=== PATIENT | male | born 1960 | race African-American/Black ===

== ENCOUNTER 2018-04-15 11:38 | Emergency (ER) | payer BC ==
--- NOTE | 2018-04-15 13:17 | UC ---
Upper Extremity HPI - HPI Summary HPI Summary: 58 year old male presents with left should pain after slipping on ice and landing on the ground on his left side. Describes pain as a constant ache that worsens with movement. He has some decreased ROM due to pain. Denies hitting head, LOC, eccymosis, swelling, numbness, tingling, or other injury. - History of Current Complaint Chief Complaint: UCUpperExtremity Stated Complaint: SHOULDER INJURY Time Seen by Provider: 04/15/18 12:38 Hx Obtained From: Patient Pain Intensity: 8 - Allergies/Home Medications Allergies/Adverse Reactions: Allergies Allergy/AdvReac Type Severity Reaction Status Date / Time No Known Allergies Allergy Verified 04/15/18 12:14 Home Medications: Home Medications Amlodipine Besylate [Norvasc 10 mg tab] 04/15/18 [History] Atorvastatin* [Lipitor 20 MG*] 20 mg PO DAILY 04/15/18 [History Confirmed ] Glimepiride 1 mg PO DAILY 04/15/18 [History Confirmed 04/15/18] Metformin HCl 1,000 mg PO BID 04/15/18 [History Confirmed 04/15/18] Ramipril 10 mg PO DAILY 04/15/18 [History Confirmed 04/15/18] cloNIDine TAB* [Catapres 0.1 MG TAB*] 0.1 mg PO DAILY 04/15/18 [History Confirmed 04/15/18] PMH/Surg Hx/FS Hx/Imm Hx Endocrine History: Diabetes, Dyslipidemia Cardiovascular History: Hypertension - Surgical History Surgical History: None - Family History Known Family History: Positive: Hypertension, Diabetes - Social History Occupation: Employed Full-time Lives: With Family Alcohol Use: None Substance Use Type: None Smoking Status (MU): Never Smoked Tobacco Review of Systems All Other Systems Reviewed And Are Negative: Yes Constitutional: Positive: Negative Skin: Negative: Bruising Respiratory: Positive: Negative Cardiovascular: Positive: Negative Gastrointestinal: Positive: Negative Genitourinary: Positive: Negative Musculoskeletal: Positive: Arthralgia - See HPI Neurological: Positive: Negative Physical Exam - Summary Physical Exam Summary: GENERAL APPEARANCE: Well developed, well nourished, alert and cooperative, and appears to be in no acute distress. HEAD: Atraumatic. normocephalic. EYES: PERRL, EOM intact. Vision is grossly intact. NECK: Neck supple, non-tender. CARDIAC: Normal S1 and S2. No S3, S4 or murmurs. Rhythm is regular. There is no peripheral edema, cyanosis or pallor. Extremities are warm and well perfused. Capillary refill is less than 2 seconds. Peripheral pulses intact. LUNGS: Clear to auscultation without rales, rhonchi, wheezing or diminished breath sounds. ABDOMEN: Positive bowel sounds. Soft, nondistended, nontender. No guarding or rebound. No masses or hepatosplenomegally. MUSKULOSKELETAL: Tenderness over the lateral left shoulder without gross deformity, ecchymosis, erythema, or lesions. ROM mildly reduced due to pain especially with abduction. Normal muscular development. Normal gait. BACK: Examination of the spine reveals normal gait and posture, no spinal deformity or tenderness, decreased range of motion or muscular spasm. EXTREMITIES: No significant deformity or joint abnormality. No edema. NEUROLOGICAL: Strength and sensation symmetric and intact throughout. SKIN: Skin normal color, texture and turgor with no lesions or eruptions. Triage Information Reviewed: Yes Vital Signs: Initial Vital Signs Temp 97.6 F 04/15/18 12:11 Pulse 62 04/15/18 12:11 Resp 16 04/15/18 12:11 BP 120/76 04/15/18 12:11 Pulse Ox 100 04/15/18 12:11 Vital Signs Reviewed: Yes Diagnostics - Radiology No standard instances Radiology Interpretation Completed By: Radiologist Summary of Radiographic Findings: Negative for fracture or dislocation. Upper Extremity Course/Dx - Course Course Of Treatment: 58 year old male presents with left should pain after slipping on ice and landing on the ground on his left side. Describes pain as a constant ache that worsens with movement. He has some decreased ROM due to pain. Denies hitting head, LOC, eccymosis, swelling, numbness, tingling, or other injury. Afebrile. VSS. Exam revealed some mild tenderness to the lateral left shoulder without gross deformity, ecchymosis, erythema, or lesions noted. ROM mildly decreased, especiallly abduction of the shoulder, due to pain. Circluation and sensation intact distally. X-ray negative for fracture or dislocation. Recommending conservative treatment with OTC analgesics and RICE for sprain vs contusion of left shoulder. He is to follow up with orthopedi surgery in 1 week if no improvment in symptoms. Anticipatory guidance and mary symptoms reviewed with patient. Verbalizes understanding and agrees with POC. - Differential Dx/Diagnosis Differential Diagnosis/HQI/PQRI: Contusion, Fracture (Closed), Strain, Sprain Provider Diagnosis: Sprain of left shoulder Discharge - Sign-Out/Discharge Documenting (check all that apply): Patient Departure All imaging exams completed and their final reports reviewed: Yes - Discharge Plan Condition: Stable Disposition: HOME Prescriptions: Naproxen [Naproxen 500 mg tab] 500 mg PO Q12HR PRN #30 tablet PRN Reason: Pain Patient Education Materials: Shoulder Sprain (ED) Referrals: Radha Lozoya MD [Primary Care Provider] - Lula Eason MD [Medical Doctor] - 7 Days (If no improvement in symptoms.) Additional Instructions: The x-ray of your shoulder performed in the clinic today was negative for fracture. I suspect that you either sprained the should or have a bad contusion. Rest the arm as much as possible. Avoid heavy lifting and strenuous activity. Apply ice to the affected area for 15-20 minutes at least 4 times a day for next few days. Do gentle range of motion exercises as we discussed to prevent the shoulder from becoming stiff. Take naproxen 500 mg every 12 hours with food as needed for pain. Follow up with Dr. Eason, orthopedic surgery, in 7 days if no improvement in symptoms. Seek immediate medical attention in the emergency room if you have severe pain that is not managed with pain medication, lose function of the arm, develop numbness or tingling, or have any worsening of symptoms. - Billing Disposition and Condition Condition: STABLE Disposition: Home - Attestation Statements Provider Attestation: Per institutional requirements, I have reviewed the chart, however, I was not consulted specifically or made aware of this patient by the midlevel provider. I did not personally evaluate, interact with , or disposition this patient.
== END 2018-04-15 13:36 | disposition home or self-care (01) ==
LOC: UCEAST 11:38
DX: S43.402A Unspecified sprain of left shoulder joint, initial encounter (principal); W00.0XXA Fall on same level due to ice and snow, initial encounter; Y92.9 Unspecified place or not applicable; M75.92 Shoulder lesion, unspecified, left shoulder; M19.012 Primary osteoarthritis, left shoulder; E11.9 Type 2 diabetes mellitus without complications; Z79.84 Long term (current) use of oral hypoglycemic drugs; E78.5 Hyperlipidemia, unspecified; I10 Essential (primary) hypertension
CPT/HCPCS: 99202; G0463

== ENCOUNTER 2018-10-27 12:51 | Emergency (ER) | payer BC ==
--- NOTE | 2018-10-27 13:19 | UC ---
Knee Pain HPI - HPI Summary HPI Summary: Patient is a 58 yo male, h/o HTN, here with right knee pain. Patient's had right knee pain for the past 10 days. Patient had no inciting injury. Patient' s knee is swollen compared to his left. Patient has no fever, chills, nausea, vomiting. Patient's current symptoms like this before. Patient does walk a lot at work and use his legs a lot. Medications reviewed - History of Current Complaint Chief Complaint: UCLowerExtremity Stated Complaint: KNEE PAIN Time Seen by Provider: 10/27/18 13:07 Pain Intensity: 2 - Allergies/Home Medications Allergies/Adverse Reactions: Allergies Allergy/AdvReac Type Severity Reaction Status Date / Time No Known Allergies Allergy Verified 10/27/18 13:05 PMH/Surg Hx/FS Hx/Imm Hx Previously Healthy: Yes - Surgical History Surgical History: None - Family History Known Family History: Positive: Hypertension, Diabetes, Non-Contributory - Social History Alcohol Use: Rare Substance Use Type: None Smoking Status (MU): Never Smoked Tobacco Review of Systems All Other Systems Reviewed And Are Negative: Yes Constitutional: Negative: Fever, Chills Skin: Negative: Rash Physical Exam - Summary Physical Exam Summary: Vital Signs Reviewed: Yes A+Ox3, no distress Eyes: Conjunctiva Clear ENT: Hearing grossly normal neck: supple Respiratory: Positive: No respiratory distress, No accessory muscle use Cardiovascular: skin color reflect adequate perfusion Musculoskeletal Exam: Right lower extremity: Knee is swollen compared to the left. Full range of motion at the joint. No overlying erythema or warmth. Crepitus with knee movement. Anterior/posterior drawer sign negative. No lateral or medial joint laxity. Neurological: Positive: Alert, ambulatory without difficulty Triage Information Reviewed: Yes Vital Signs: Initial Vital Signs Temp 97.3 F 10/27/18 12:58 Pulse 66 10/27/18 12:58 Resp 18 10/27/18 12:58 BP 138/76 10/27/18 12:58 Pulse Ox 98 10/27/18 12:58 Knee Pain Course/Dx - Course Course Of Treatment: Patient is here with symptoms consistent with knee osteoarthritis. Patient has no evidence of septic arthritis. Patient had an Brant wrap placed. Patient was discharged with Naprosyn and given orthopedic surgery follow-up. - Differential Dx/Diagnosis Differential Diagnosis/HQI/PQRI: Contusion, Internal Derangement Of Knee, Sprain , Strain, Tendonitis Provider Diagnosis: Knee osteoarthritis Discharge - Sign-Out/Discharge Documenting (check all that apply): Patient Departure All imaging exams completed and their final reports reviewed: No Studies - Discharge Plan Condition: Stable Disposition: HOME Prescriptions: Ibuprofen TAB* [Motrin TAB* 600 MG] 600 mg PO Q6H PRN #30 tab PRN Reason: Pain - Moderate Patient Education Materials: Osteoarthritis (ED) Referrals: Radha Lozoya MD [Primary Care Provider] - Priyanka Mauro MD [Medical Doctor] - Additional Instructions: Please rest, elevate, ice your knee at the end of the day Please take your medication as prescribed Please call the orthopedic surgeon to set up an appointment - Billing Disposition and Condition Condition: STABLE Disposition: Home
== END 2018-10-27 13:25 | disposition home or self-care (01) ==
LOC: UCEAST 12:51
DX: M17.11 Unilateral primary osteoarthritis, right knee (principal); I10 Essential (primary) hypertension
CPT/HCPCS: 99212; G0463

== ENCOUNTER 2019-10-23 09:37 | Inpatient (IN) ==
[2019-10-23] MEDS ORDERED: Cefepime 2 GM in NS 0.9% 50 ML 50 ML IVPB ONE (10:28)
[2019-10-23] MEDS ORDERED: metroNIDAZOLE IV 500 MG/100ML 500 MG/100 ML BAG IVPB ONE (10:28)
[2019-10-23] MEDS ORDERED: Vancomycin 1,500 MG in NS 0.9% 250 ml 250 ML IVPB ONE (11:00)
[2019-10-23] MEDS ORDERED: NS 0.9% 50 ML 0 ML ONE (11:00)
[2019-10-23] MEDS ORDERED: Cefepime 2 GM IV - ED ONCE IV ONE (11:15)
[2019-10-23 11:25] LABS: ABS Lymphocytes 0.9 10^3/ul (1.0-4.8); ABS Monocytes 0.8 10^3/ul (0-0.8); ABS Neutrophils 18.6 10^3/ul (1.5-7.7); Hematocrit 39 % (42-52); Hemoglobin 13.3 g/dL (14.0-18.0); Lymphocyte % 4.3 %; Mean Corpuscular HGB Conc 34 g/dL (31-36); Mean Corpuscular Hemoglobin 31 pg (27-31); Mean Corpuscular Volume 90 fL (80-94); Mean Platelet Volume 7.3 fL (7.4-10.4); Nucleated Red Blood Cells % 0.1; Platelet Count 426 10^3/uL (150-450); Red Blood Count 4.31 10^6 /uL (4.18-5.48); Red Cell Distribution Width 15 % (10-15); White Blood Count 20.4 10^3/uL (3.5-10.8)
[2019-10-23 11:49] LABS: Albumin 3.4 g/dL (3.2-5.2); Albumin/Globulin Ratio 0.8 (1-3); BUN/Creatinine Ratio 21.2 (8-20); C Reactive Protein 266.92 mg/L (<8.01); EGFR African American 39.7 (>60); EGFR Non-African American 32.8 (>60); Globulin 4.4 g/dL (2-4); Potassium 3.6 mmol/L (3.5-5.0); Total Bilirubin 0.6 mg/dL (0.2-1.0); Total Protein 7.8 g/dL (6.4-8.9)
[2019-10-23] MEDS ORDERED: NS 0.9% 1000 ml BAG 1,000 ML IV ONE (11:55)
[2019-10-23 13:25] LABS: Erythrocyte Sed Rate 111 mm/Hr (0-19)
[2019-10-23] MEDS ORDERED: Dextrose 50% Syringe 50 ml 25 GM/50 ML SYRINGE IV PUSH PRN (13:45)
[2019-10-23] MEDS ORDERED: Vancomycin per Pharmacy 1 EA NOTE FOLLOW UP SCH (14:00)
[2019-10-23] MEDS ORDERED: NS 0.9% 1000 ml BAG 1,000 ML IV SCH (14:00)
[2019-10-23] MEDS: Heparin 5000 UNITS/ML 1 mL VIAL SUBCUT SCH ×2 (16:45→22:12)
[2019-10-23] MEDS: metroNIDAZOLE IV 500 MG/100ML 500 MG/100 ML BAG IVPB SCH (20:08)
[2019-10-23] MEDS: Cefepime 2 GM in Dextrose 2 GM/50 ML BAG IV SCH (22:12)
[2019-10-24] MEDS: metroNIDAZOLE IV 500 MG/100ML 500 MG/100 ML BAG IVPB SCH ×2 (04:17→12:11)
[2019-10-24] MEDS: Heparin 5000 UNITS/ML 1 mL VIAL SUBCUT SCH (05:30)
[2019-10-24 06:02] LABS: ABS Lymphocytes 1.4 10^3/ul (1.0-4.8); ABS Neutrophils 16.5 10^3/ul (1.5-7.7); Eosinophil % 0.1 %; Hematocrit 38 % (42-52); Hemoglobin 13.1 g/dL (14.0-18.0); Lymphocyte % 7.2 %; Mean Corpuscular HGB Conc 35 g/dL (31-36); Mean Corpuscular Hemoglobin 31 pg (27-31); Mean Corpuscular Volume 89 fL (80-94); Platelet Count 382 10^3/uL (150-450); Red Blood Count 4.22 10^6 /uL (4.18-5.48); Red Cell Distribution Width 15 % (10-15); White Blood Count 18.9 10^3/uL (3.5-10.8)
[2019-10-24 06:16] LABS: BUN/Creatinine Ratio 21.1 (8-20); Calcium 8.5 mg/dL (8.6-10.3); EGFR African American 59.3 (>60); Potassium 3.4 mmol/L (3.5-5.0)
[2019-10-24] MEDS ORDERED: Potassium Chloride LIQUID 20 MEQ/15 ML LIQUID PO ONE (07:14)
[2019-10-24] MEDS: Cefepime 2 GM in Dextrose 2 GM/50 ML BAG IV SCH (11:04)
[2019-10-24] MEDS ORDERED: Vancomycin 1,250 MG in NS 0.9% 250 ml 250 ML IV SCH (12:00)
[2019-10-24 13:58] VITALS: BP 152/79
[2019-10-26] MEDS ORDERED: Vancomycin Trough Check NOTE FOLLOW UP ONE (11:30)
== END 2019-10-24 14:00 | disposition short-term general hospital (02) | DRG 197 ==
LOC: ED 09:37 → MED 13:40
PROVIDERS: ADMIT Internal Medicine; ATTEND Internal Medicine

== ENCOUNTER 2019-11-03 07:06 | Inpatient (IN) ==
[2019-11-03] MEDS ORDERED: Senna TAB 8.6 mg TAB PO PRN (13:29)
[2019-11-03] MEDS ORDERED: Magnesium Hydroxide LIQ 30 ML UDC PO PRN (13:29)
[2019-11-03] MEDS ORDERED: Dextrose 50% Syringe 50 ml 25 GM/50 ML SYRINGE IV PUSH PRN (13:41)
[2019-11-03] MEDS: oxyCODONE SR 10 mg TAB PO SCH (21:04)
[2019-11-03] MEDS: Heparin 5000 UNITS/ML 1 mL VIAL SUBCUT SCH (21:12)
[2019-11-04] MEDS: Heparin 5000 UNITS/ML 1 mL VIAL SUBCUT SCH ×3 (05:31→21:06)
[2019-11-04] MEDS: oxyCODONE SR 10 mg TAB PO SCH ×2 (08:51→21:05)
[2019-11-04] MEDS: CMCS:Glimepiride 2 mg TAB (NF) PO SCH (08:52)
[2019-11-05] MEDS: Heparin 5000 UNITS/ML 1 mL VIAL SUBCUT SCH ×3 (06:19→21:56)
[2019-11-05] MEDS: CMCS:Glimepiride 2 mg TAB (NF) PO SCH (09:19)
[2019-11-05] MEDS: oxyCODONE SR 10 mg TAB PO SCH ×2 (09:21→21:56)
[2019-11-06 05:55] LABS: ABS Basophils 0.1 10^3/ul (0-0.2); ABS Lymphocytes 1.1 10^3/ul (1.0-4.8); ABS Monocytes 0.6 10^3/ul (0-0.8); ABS Neutrophils 5.7 10^3/ul (1.5-7.7); Eosinophil % 0.6 %; Hematocrit 30 % (42-52); Hemoglobin 10.4 g/dL (14.0-18.0); Lymphocyte % 15.2 %; Mean Corpuscular HGB Conc 35 g/dL (31-36); Mean Corpuscular Hemoglobin 31 pg (27-31); Mean Corpuscular Volume 88 fL (80-94); Mean Platelet Volume 6.5 fL (7.4-10.4); Platelet Count 847 10^3/uL (150-450); Red Blood Count 3.34 10^6 /uL (4.18-5.48); Red Cell Distribution Width 14 % (10-15); White Blood Count 7.5 10^3/uL (3.5-10.8)
[2019-11-06 06:11] LABS: Albumin 2.9 g/dL (3.2-5.2); Albumin/Globulin Ratio 0.7 (1-3); BUN/Creatinine Ratio 15.2 (8-20); Calcium 8.8 mg/dL (8.6-10.3); EGFR African American 63.8 (>60); EGFR Non-African American 52.7 (>60); Total Bilirubin 0.6 mg/dL (0.2-1.0); Total Protein 6.9 g/dL (6.4-8.9)
[2019-11-06] MEDS: Heparin 5000 UNITS/ML 1 mL VIAL SUBCUT SCH ×3 (06:32→21:30)
[2019-11-06] MEDS: CMCS:Glimepiride 2 mg TAB (NF) PO SCH (09:25)
[2019-11-06] MEDS: oxyCODONE SR 10 mg TAB PO SCH ×2 (09:26→21:29)
[2019-11-07] MEDS: Heparin 5000 UNITS/ML 1 mL VIAL SUBCUT SCH ×3 (05:41→22:10)
[2019-11-07] MEDS: CMCS:Glimepiride 2 mg TAB (NF) PO SCH (08:21)
[2019-11-07] MEDS: Senna TAB 8.6 mg TAB PO SCH (21:04)
[2019-11-07] MEDS: oxyCODONE SR 10 mg TAB PO SCH (21:05)
[2019-11-08] MEDS: Heparin 5000 UNITS/ML 1 mL VIAL SUBCUT SCH ×3 (06:01→22:04)
[2019-11-08] MEDS: CMCS:Glimepiride 2 mg TAB (NF) PO SCH (09:34)
[2019-11-08] MEDS: Polyethylene Glycol 3350 17 GM PACKET PO SCH (09:43)
[2019-11-08] MEDS: Senna TAB 8.6 mg TAB PO SCH (21:23)
[2019-11-08] MEDS: oxyCODONE SR 10 mg TAB PO SCH (21:23)
[2019-11-09] MEDS: Heparin 5000 UNITS/ML 1 mL VIAL SUBCUT SCH (05:59)
[2019-11-09 06:07] VITALS: BP 119/62
[2019-11-09] MEDS: CMCS:Glimepiride 2 mg TAB (NF) PO SCH (09:48)
[2019-11-09] MEDS: Polyethylene Glycol 3350 17 GM PACKET PO SCH (09:49)
== END 2019-11-09 13:45 | disposition home health service (06) | DRG 860 ==
LOC: PMRU 12:53
PROVIDERS: ADMIT Physical Medicine & Rehabilitation; ATTEND Physical Medicine & Rehabilitation

== ENCOUNTER 2020-03-27 16:24 | Inpatient (IN) ==
[2020-03-27 17:11] LABS: ABS Lymphocytes 0.6 10^3/ul (1.0-4.8); ABS Monocytes 0.2 10^3/ul (0-0.8); ABS Neutrophils 6.1 10^3/ul (1.5-7.7); Hematocrit 40 % (42-52); Hemoglobin 13.6 g/dL (14.0-18.0); Lymphocyte % 8.7 %; Mean Corpuscular HGB Conc 34 g/dL (31-36); Mean Corpuscular Hemoglobin 29 pg (27-31); Mean Corpuscular Volume 84 fL (80-94); Mean Platelet Volume 7.2 fL (7.4-10.4); Nucleated Red Blood Cells % 0.1; Platelet Count 371 10^3/uL (150-450); Red Blood Count 4.72 10^6 /uL (4.18-5.48); Red Cell Distribution Width 18 % (10-15); White Blood Count 6.9 10^3/uL (3.5-10.8)
[2020-03-27 17:35] LABS: ALT 39 U/L (7-52); AST 58 U/L (13-39); Albumin 3.4 g/dL (3.2-5.2); Albumin/Globulin Ratio 1.1 (1-3); Alkaline Phosphatase 57 U/L (34-104); Anion Gap 12 mmol/L (2-11); BUN/Creatinine Ratio 22.8 (8-20); Blood Urea Nitrogen 36 mg/dL (6-24); CO2 Carbon Dioxide 25 mmol/L (22-32); Calcium 8.6 mg/dL (8.6-10.3); Chloride 101 mmol/L (101-111); EGFR African American 54.4 (>60); Globulin 3.2 g/dL (2-4); Glucose 284 mg/dL (70-100); Potassium 3.5 mmol/L (3.5-5.0); Sodium 138 mmol/L (135-145); Total Protein 6.6 g/dL (6.4-8.9)
[2020-03-27 17:37] LABS: Troponin I 0.04 ng/mL (<0.03)
[2020-03-27] MEDS ORDERED: Iodixanol (CONTRAST) 320 MG/ML 100 ML SDV IV ONE (18:07)
[2020-03-27] MEDS ORDERED: Dextrose 50% Syringe 50 ml 25 GM/50 ML SYRINGE IV PUSH PRN (21:25)
[2020-03-27] MEDS ORDERED: Ondansetron 4 mg VIAL 2 MG/ML 2 ml VIAL IV PRN (21:25)
[2020-03-27] MEDS ORDERED: Remdesivir 100 mg Vial 200 MG in NS 0.9% 250 ml 210 ML IV ONE (21:25)
[2020-03-27] MEDS ORDERED: Enoxaparin 40 MG/0.4 ML SYR SUBCUT SCH (22:00)
[2020-03-28 00:49] LABS: Troponin I 0.04 ng/mL (<0.03)
[2020-03-28 01:46] LABS: Troponin I 0.05 ng/mL (<0.03)
[2020-03-28 04:29] LABS: ABS Lymphocytes 0.6 10^3/ul (1.0-4.8); ABS Monocytes 0.2 10^3/ul (0-0.8); ABS Neutrophils 6.8 10^3/ul (1.5-7.7); Hematocrit 38 % (42-52); Hemoglobin 13.1 g/dL (14.0-18.0); Lymphocyte % 7.8 %; Mean Corpuscular HGB Conc 34 g/dL (31-36); Mean Corpuscular Hemoglobin 29 pg (27-31); Mean Corpuscular Volume 84 fL (80-94); Mean Platelet Volume 7.1 fL (7.4-10.4); Nucleated Red Blood Cells % 0.1; Platelet Count 383 10^3/uL (150-450); Red Blood Count 4.58 10^6 /uL (4.18-5.48); Red Cell Distribution Width 18 % (10-15); White Blood Count 7.6 10^3/uL (3.5-10.8)
[2020-03-28 04:34] LABS: INR 1.19 (0.82-1.09)
[2020-03-28 05:32] LABS: HIV 4th Generation Nonreactive (Nonreactive)
[2020-03-28 05:40] LABS: ALT 37 U/L (7-52); AST 54 U/L (13-39); Albumin 3.1 g/dL (3.2-5.2); Albumin/Globulin Ratio 0.9 (1-3); Alkaline Phosphatase 60 U/L (34-104); Anion Gap 12 mmol/L (2-11); BUN/Creatinine Ratio 19.3 (8-20); Blood Urea Nitrogen 28 mg/dL (6-24); CO2 Carbon Dioxide 25 mmol/L (22-32); Chloride 101 mmol/L (101-111); EGFR African American 60.1 (>60); EGFR Non-African American 49.6 (>60); Globulin 3.5 g/dL (2-4); Glucose 227 mg/dL (70-100); Indirect Bilirubin 0.4 mg/dL (0.3-1.0); Potassium 3.6 mmol/L (3.5-5.0); Sodium 138 mmol/L (135-145); Total Protein 6.6 g/dL (6.4-8.9)
[2020-03-28 05:56] LABS: Troponin I 0.05 ng/mL (<0.03)
[2020-03-28] MEDS ORDERED: Influenza VAC *QUAD* 2020-21* 0.5 ML SYRINGE IM ONE (09:00)
[2020-03-28] MEDS: Enoxaparin 60 MG/0.6 ML SYR SUBCUT SCH ×2 (09:23→22:20)
[2020-03-28 09:59] LABS: Troponin I 0.04 ng/mL (<0.03)
[2020-03-28] MEDS ORDERED: Furosemide 40 mg/4 ml IV VIAL IV ONE (10:02)
[2020-03-28 13:24] LABS: Hepatitis C Antibody Negative (Negative)
[2020-03-28] MEDS: Remdesivir 100 mg Vial 100 MG in NS 0.9% 250 ml 230 ML IV SCH (21:01)
[2020-03-29 05:16] LABS: Hematocrit 40 % (42-52); Hemoglobin 13.6 g/dL (14.0-18.0); Mean Corpuscular HGB Conc 34 g/dL (31-36); Mean Corpuscular Hemoglobin 29 pg (27-31); Mean Corpuscular Volume 83 fL (80-94); Mean Platelet Volume 7.2 fL (7.4-10.4); Platelet Count 418 10^3/uL (150-450); Red Blood Count 4.73 10^6 /uL (4.18-5.48); Red Cell Distribution Width 18 % (10-15); White Blood Count 5.3 10^3/uL (3.5-10.8)
[2020-03-29 05:30] LABS: Albumin 3.1 g/dL (3.2-5.2); BUN/Creatinine Ratio 30.3 (8-20); Calcium 8.3 mg/dL (8.6-10.3); EGFR African American 60.1 (>60); EGFR Non-African American 49.6 (>60); Globulin 3.2 g/dL (2-4); Potassium 3.6 mmol/L (3.5-5.0); Total Bilirubin 0.6 mg/dL (0.2-1.0); Total Protein 6.3 g/dL (6.4-8.9)
[2020-03-29] MEDS: Enoxaparin 60 MG/0.6 ML SYR SUBCUT SCH ×2 (08:35→21:11)
[2020-03-29] MEDS: Remdesivir 100 mg Vial 100 MG in NS 0.9% 250 ml 230 ML IV SCH (21:40)
[2020-03-30 05:09] LABS: Hematocrit 41 % (42-52); Hemoglobin 13.9 g/dL (14.0-18.0); Mean Corpuscular HGB Conc 34 g/dL (31-36); Mean Corpuscular Hemoglobin 29 pg (27-31); Mean Corpuscular Volume 85 fL (80-94); Mean Platelet Volume 7.2 fL (7.4-10.4); Platelet Count 524 10^3/uL (150-450); Red Blood Count 4.81 10^6 /uL (4.18-5.48); Red Cell Distribution Width 17 % (10-15); White Blood Count 7.8 10^3/uL (3.5-10.8)
[2020-03-30 05:42] LABS: Albumin 3.3 g/dL (3.2-5.2); Albumin/Globulin Ratio 1.1 (1-3); BUN/Creatinine Ratio 32.3 (8-20); Calcium 8.5 mg/dL (8.6-10.3); EGFR African American 68.1 (>60); EGFR Non-African American 56.3 (>60); Globulin 3.1 g/dL (2-4); Potassium 3.9 mmol/L (3.5-5.0); Total Bilirubin 0.6 mg/dL (0.2-1.0); Total Protein 6.4 g/dL (6.4-8.9)
[2020-03-30] MEDS: Insulin GLARGINE 100 un/ml 10 ml VIAL SUBCUT SCH (09:22)
[2020-03-30] MEDS: Enoxaparin 60 MG/0.6 ML SYR SUBCUT SCH ×2 (09:23→21:48)
[2020-03-30 20:17] LABS: Hepatitis B Surface Antigen Nonreactive (Nonreactive)
[2020-03-30] MEDS: Remdesivir 100 mg Vial 100 MG in NS 0.9% 250 ml 230 ML IV SCH (21:49)
[2020-03-31 05:31] LABS: Hematocrit 41 % (42-52); Mean Corpuscular HGB Conc 34 g/dL (31-36); Mean Corpuscular Hemoglobin 29 pg (27-31); Mean Corpuscular Volume 85 fL (80-94); Mean Platelet Volume 6.9 fL (7.4-10.4); Platelet Count 563 10^3/uL (150-450); Red Blood Count 4.89 10^6 /uL (4.18-5.48); Red Cell Distribution Width 18 % (10-15); White Blood Count 6.9 10^3/uL (3.5-10.8)
[2020-03-31 05:49] LABS: Albumin 3.1 g/dL (3.2-5.2); Albumin/Globulin Ratio 0.9 (1-3); BUN/Creatinine Ratio 29.3 (8-20); EGFR African American 72.6 (>60); Globulin 3.3 g/dL (2-4); Potassium 4.2 mmol/L (3.5-5.0); Total Bilirubin 0.6 mg/dL (0.2-1.0); Total Protein 6.4 g/dL (6.4-8.9)
[2020-03-31] MEDS: Insulin GLARGINE 100 un/ml 10 ml VIAL SUBCUT SCH (08:19)
[2020-03-31] MEDS: Enoxaparin 60 MG/0.6 ML SYR SUBCUT SCH ×2 (08:19→20:41)
[2020-03-31] MEDS ORDERED: Insulin GLARGINE 100 un/ml 10 ml VIAL SUBCUT ONE (09:25)
[2020-03-31] MEDS: Remdesivir 100 mg Vial 100 MG in NS 0.9% 250 ml 230 ML IV SCH (20:41)
[2020-04-01 06:36] LABS: ABS Lymphocytes 0.6 10^3/ul (1.0-4.8); ABS Monocytes 0.2 10^3/ul (0-0.8); ABS Neutrophils 5.8 10^3/ul (1.5-7.7); Eosinophil % 0.5 %; Hematocrit 41 % (42-52); Hemoglobin 13.5 g/dL (14.0-18.0); Lymphocyte % 8.7 %; Mean Corpuscular HGB Conc 33 g/dL (31-36); Mean Corpuscular Hemoglobin 28 pg (27-31); Mean Corpuscular Volume 85 fL (80-94); Mean Platelet Volume 7.2 fL (7.4-10.4); Nucleated Red Blood Cells % 0.2; Platelet Count 528 10^3/uL (150-450); Red Cell Distribution Width 18 % (10-15); White Blood Count 6.6 10^3/uL (3.5-10.8)
[2020-04-01 06:55] LABS: Calcium 7.9 mg/dL (8.6-10.3); EGFR African American 74.7 (>60); EGFR Non-African American 61.8 (>60); Magnesium 2.1 mg/dL (1.9-2.7); Phosphorus 3.2 mg/dL (2.5-5.0); Potassium 3.7 mmol/L (3.5-5.0)
[2020-04-01] MEDS: Insulin GLARGINE 100 un/ml 10 ml VIAL SUBCUT SCH (09:08)
[2020-04-01] MEDS: Enoxaparin 60 MG/0.6 ML SYR SUBCUT SCH ×2 (09:08→21:27)
[2020-04-02 05:27] LABS: ABS Lymphocytes 0.4 10^3/ul (1.0-4.8); ABS Monocytes 0.2 10^3/ul (0-0.8); Eosinophil % 0.5 %; Hematocrit 38 % (42-52); Hemoglobin 12.8 g/dL (14.0-18.0); Lymphocyte % 6.5 %; Mean Corpuscular HGB Conc 34 g/dL (31-36); Mean Corpuscular Hemoglobin 29 pg (27-31); Mean Corpuscular Volume 85 fL (80-94); Mean Platelet Volume 7.3 fL (7.4-10.4); Platelet Count 597 10^3/uL (150-450); Red Blood Count 4.45 10^6 /uL (4.18-5.48); Red Cell Distribution Width 18 % (10-15); White Blood Count 6.7 10^3/uL (3.5-10.8)
[2020-04-02 05:40] LABS: EGFR African American 81.8 (>60); EGFR Non-African American 67.6 (>60)
[2020-04-02 08:38] LABS: Magnesium 2.3 mg/dL (1.9-2.7); Phosphorus 3.6 mg/dL (2.5-5.0)
[2020-04-02] MEDS: Insulin GLARGINE 100 un/ml 10 ml VIAL SUBCUT SCH (09:02)
[2020-04-02] MEDS: Enoxaparin 60 MG/0.6 ML SYR SUBCUT SCH ×2 (09:30→21:31)
[2020-04-03 06:56] LABS: Anion Gap 8 mmol/L (2-11); BUN/Creatinine Ratio 28.4 (8-20); Blood Urea Nitrogen 31 mg/dL (6-24); CO2 Carbon Dioxide 26 mmol/L (22-32); Calcium 8.8 mg/dL (8.6-10.3); Chloride 102 mmol/L (101-111); EGFR African American 83.5 (>60); Glucose 92 mg/dL (70-100); Magnesium 2.1 mg/dL (1.9-2.7); Phosphorus 3.8 mg/dL (2.5-5.0); Potassium 4.2 mmol/L (3.5-5.0); Sodium 136 mmol/L (135-145)
[2020-04-03] MEDS ORDERED: Insulin GLARGINE 100 un/ml 10 ml VIAL SUBCUT SCH (09:00)
[2020-04-03] MEDS: Enoxaparin 60 MG/0.6 ML SYR SUBCUT SCH ×2 (09:12→21:06)
[2020-04-03 10:02] LABS: ABS Eosinophils 0.2 10^3/ul (0-0.6); ABS Lymphocytes 0.5 10^3/ul (1.0-4.8); ABS Monocytes 0.3 10^3/ul (0-0.8); ABS Neutrophils 9.3 10^3/ul (1.5-7.7); Eosinophil % 1.6 %; Hematocrit 44 % (42-52); Hemoglobin 14.6 g/dL (14.0-18.0); Lymphocyte % 4.5 %; Mean Corpuscular HGB Conc 34 g/dL (31-36); Mean Corpuscular Hemoglobin 28 pg (27-31); Mean Corpuscular Volume 84 fL (80-94); Mean Platelet Volume 7.2 fL (7.4-10.4); Nucleated Red Blood Cells % 0.1; Platelet Count 806 10^3/uL (150-450); Red Blood Count 5.18 10^6 /uL (4.18-5.48); Red Cell Distribution Width 18 % (10-15); White Blood Count 10.2 10^3/uL (3.5-10.8)
[2020-04-03] MEDS ORDERED: Perflutren Lipid Microsphere 3 ML VIAL ONE (10:32)
[2020-04-03] MEDS: methylPREDNISolone SOD 40 mg/ml 1 ml VIAL IV SCH (21:06)
[2020-04-03] MEDS ORDERED: Albuterol HFA INHALER 8 gm MDI INH PRN (22:28)
[2020-04-04 04:45] LABS: ABS Lymphocytes 0.4 10^3/ul (1.0-4.8); ABS Monocytes 0.2 10^3/ul (0-0.8); ABS Neutrophils 8.9 10^3/ul (1.5-7.7); Eosinophil % 0.2 %; Hematocrit 38 % (42-52); Hemoglobin 12.7 g/dL (14.0-18.0); Mean Corpuscular HGB Conc 33 g/dL (31-36); Mean Corpuscular Hemoglobin 28 pg (27-31); Mean Corpuscular Volume 85 fL (80-94); Mean Platelet Volume 7.2 fL (7.4-10.4); Platelet Count 793 10^3/uL (150-450); Red Blood Count 4.51 10^6 /uL (4.18-5.48); Red Cell Distribution Width 17 % (10-15); White Blood Count 9.5 10^3/uL (3.5-10.8)
[2020-04-04 05:03] LABS: C Reactive Protein 116.05 mg/L (<8.01)
[2020-04-04 06:07] LABS: Troponin I 0.01 ng/mL (<0.03)
[2020-04-04] MEDS: Insulin GLARGINE 100 un/ml 10 ml VIAL SUBCUT SCH (07:59)
[2020-04-04] MEDS: methylPREDNISolone SOD 40 mg/ml 1 ml VIAL IV SCH ×2 (08:00→21:22)
[2020-04-04] MEDS ORDERED: Furosemide 20 mg/2 ml IV VIAL IV ONE (08:28)
[2020-04-04] MEDS: Enoxaparin 60 MG/0.6 ML SYR SUBCUT SCH ×2 (08:49→21:22)
[2020-04-04 17:17] LABS: Glucose Confirmatory 455 mg/dL (70-100)
[2020-04-05] MEDS: Insulin GLARGINE 100 un/ml 10 ml VIAL SUBCUT SCH (07:49)
[2020-04-05] MEDS: methylPREDNISolone SOD 40 mg/ml 1 ml VIAL IV SCH ×2 (07:49→20:38)
[2020-04-05] MEDS ORDERED: Insulin GLARGINE 100 un/ml 10 ml VIAL SUBCUT ONE (09:00)
[2020-04-05] MEDS ORDERED: Insulin GLARGINE 100 un/ml 10 ml VIAL SUBCUT SCH (09:00)
[2020-04-05] MEDS: Enoxaparin 40 MG/0.4 ML SYR SUBCUT SCH ×2 (11:46→20:37)
[2020-04-05] MEDS ORDERED: Furosemide 40 mg/4 ml IV VIAL IV ONE (12:47)
[2020-04-05] MEDS: Enoxaparin 60 MG/0.6 ML SYR SUBCUT SCH (14:07)
[2020-04-05 17:04] LABS: Glucose Confirmatory 419 mg/dL (70-100)
[2020-04-06 04:58] LABS: Hematocrit 42 % (42-52); Mean Corpuscular HGB Conc 33 g/dL (31-36); Mean Corpuscular Hemoglobin 29 pg (27-31); Mean Corpuscular Volume 86 fL (80-94); Mean Platelet Volume 7.1 fL (7.4-10.4); Platelet Count 937 10^3/uL (150-450); Red Blood Count 4.89 10^6 /uL (4.18-5.48); Red Cell Distribution Width 17 % (10-15); White Blood Count 12.2 10^3/uL (3.5-10.8)
[2020-04-06 05:15] LABS: BUN/Creatinine Ratio 35.4 (8-20); Calcium 7.4 mg/dL (8.6-10.3); EGFR African American 93.3 (>60); EGFR Non-African American 77.1 (>60); Magnesium 1.9 mg/dL (1.9-2.7); Phosphorus 3.8 mg/dL (2.5-5.0)
[2020-04-06] MEDS ORDERED: Rocuronium 50 mg VIAL 10 mg/ml 5 ml VIAL (50 mg) ONE ×4 (09:52→12:43)
[2020-04-06] MEDS ORDERED: Propofol 10 mg/ml 100 ML BTL 100 ML ONE (09:52)
[2020-04-06] MEDS ORDERED: Etomidate 40 mg/20 ml (2 MG/ML) 20 ml VIAL (40 mg) ONE (10:04)
[2020-04-06] MEDS ORDERED: Propofol 10 MG/ML 20 ML BTL ONE (10:04)
[2020-04-06] MEDS: Enoxaparin 40 MG/0.4 ML SYR SUBCUT SCH ×2 (11:03→22:01)
[2020-04-06] MEDS: Insulin GLARGINE 100 un/ml 10 ml VIAL SUBCUT SCH (11:33)
[2020-04-06] MEDS: methylPREDNISolone SOD 40 mg/ml 1 ml VIAL IV SCH ×2 (11:40→22:02)
[2020-04-06] MEDS ORDERED: fentaNYL 100 mcg/2 ml 50 MCG/ML VIAL ONE ×2 (11:55→13:52)
[2020-04-06] MEDS ORDERED: fentaNYL 100 mcg/2 ml 50 MCG/ML VIAL IV SLOW PU ONE (11:56)
[2020-04-06] MEDS ORDERED: Propofol 10 mg/ml 100 ML BTL 100 ML IV SCH (12:00)
[2020-04-06 12:03] LABS: Urine Appearance Cloudy; Urine Bilirubin Negative (Negative); Urine Blood Negative (Negative); Urine Color Amber; Urine Glucose Negative (Negative); Urine Ketones Negative (Negative); Urine Nitrite Negative (Negative); Urine Protein 2+(100 mg/dL) (Negative); Urine Specific Gravity 1.021 (1.010-1.030); Urine Urobilinogen Positive (Negative)
[2020-04-06 12:11] LABS: Urine Bacteria 3+ (Absent); Urine Red Blood Cell 1+(3-5/hpf) (Absent); Urine Squamous Epithelial Cell Present (Absent); Urine White Blood Cell 3+(>20/hpf) (Absent)
[2020-04-06 12:25] LABS: Anion Gap 10 mmol/L (2-11); Blood Urea Nitrogen 38 mg/dL (6-24); C Reactive Protein 62.41 mg/L (<8.01); CO2 Carbon Dioxide 28 mmol/L (22-32); Calcium 8.7 mg/dL (8.6-10.3); Chloride 99 mmol/L (101-111); EGFR African American 78.5 (>60); EGFR Non-African American 64.9 (>60); Glucose 116 mg/dL (70-100); Potassium 3.7 mmol/L (3.5-5.0); Sodium 137 mmol/L (135-145)
[2020-04-06 12:33] LABS: Troponin I 0.08 ng/mL (<0.03)
[2020-04-06] MEDS: Cisatracurium 100 MG in NS 0.9% 250 ml 200 ML IV SCH (12:45)
[2020-04-06] MEDS: fentaNYL 100 mcg/2 ml 50 MCG/ML VIAL IV SLOW PU PRN (14:35)
[2020-04-06] MEDS: fentaNYL INFUSION 50 MCG/ML 2,500 MCG/50 ML BAG IV SCH (15:17)
[2020-04-06] MEDS: Propofol* 20 ML VIAL - FOR IV LINE PRIMING ONLY SCH (15:26)
[2020-04-06] MEDS: Propofol 10 mg/ml 100 ML BTL 100 ML IV SCH ×2 (16:33→20:21)
[2020-04-06] MEDS: Chlorhexidine MOUTHWASH 0.12% 15 ML UDC TOPICAL SCH ×2 (18:40→22:02)
[2020-04-06] MEDS ORDERED: Norepinephrine 16MCG/ML IVPRE 4,000 MCG/250 ML BAG IV ONE (20:56)
[2020-04-06] MEDS: Norepinephrine 16MCG/ML IVPREMIX 4,000 MCG/250 ML BAG IV SCH (21:22)
[2020-04-07] MEDS: Propofol 10 mg/ml 100 ML BTL 100 ML IV SCH ×4 (00:26→21:51)
[2020-04-07] MEDS: Chlorhexidine MOUTHWASH 0.12% 15 ML UDC TOPICAL SCH ×6 (02:20→21:06)
[2020-04-07] MEDS: Propofol* 20 ML VIAL - FOR IV LINE PRIMING ONLY SCH ×2 (02:58→16:19)
[2020-04-07] MEDS: Norepinephrine 16MCG/ML IVPREMIX 4,000 MCG/250 ML BAG IV SCH ×5 (03:15→21:08)
[2020-04-07 04:02] LABS: Hematocrit 41 % (42-52); Hemoglobin 13.2 g/dL (14.0-18.0); Mean Corpuscular HGB Conc 32 g/dL (31-36); Mean Corpuscular Hemoglobin 28 pg (27-31); Mean Corpuscular Volume 86 fL (80-94); Mean Platelet Volume 7.1 fL (7.4-10.4); Platelet Count 1255 10^3/uL (150-450); Red Blood Count 4.72 10^6 /uL (4.18-5.48); Red Cell Distribution Width 18 % (10-15); White Blood Count 18.5 10^3/uL (3.5-10.8)
[2020-04-07 04:15] LABS: BUN/Creatinine Ratio 36.3 (8-20); Blood Urea Nitrogen 53 mg/dL (6-24); CO2 Carbon Dioxide 26 mmol/L (22-32); Chloride 99 mmol/L (101-111); EGFR African American 59.6 (>60); EGFR Non-African American 49.3 (>60); Glucose 277 mg/dL (70-100); Magnesium 2.4 mg/dL (1.9-2.7); Phosphorus 6.1 mg/dL (2.5-5.0); Sodium 134 mmol/L (135-145)
[2020-04-07 04:16] LABS: Anion Gap 9 mmol/L (2-11); Potassium 5.4 mmol/L (3.5-5.0)
[2020-04-07] MEDS: Artificial Tear OPHTH.OINT 3.5 GM BOTH EYES SCH ×3 (05:57→17:33)
[2020-04-07] MEDS: Cisatracurium 100 MG in NS 0.9% 250 ml 200 ML IV SCH (06:22)
[2020-04-07] MEDS: fentaNYL INFUSION 50 MCG/ML 2,500 MCG/50 ML BAG IV SCH (06:26)
[2020-04-07] MEDS ORDERED: Piperacillin/Tazobac ADVAN 3.375 GM in NS 0.9% 100 ml BAG 100 ML IV ONE (07:35)
[2020-04-07] MEDS ORDERED: Dextrose 50% Syringe 50 ml 25 GM/50 ML SYRINGE IV PUSH PRN (07:37)
[2020-04-07] MEDS ORDERED: Linezolid 600 MG IVPREMIX(*) 600 MG/300 ML BAG IVPB SCH (08:00)
[2020-04-07] MEDS ORDERED: Zosyn per Pharmacy NOTE FOLLOW UP SCH (08:00)
[2020-04-07] MEDS ORDERED: Vancomycin per Pharmacy 1 EA NOTE FOLLOW UP SCH (08:00)
[2020-04-07] MEDS ORDERED: Vancomycin 1,250 MG in NS 0.9% 250 ml 250 ML IVPB ONE (08:30)
[2020-04-07] MEDS: methylPREDNISolone SOD 40 mg/ml 1 ml VIAL IV SCH ×2 (08:40→21:06)
[2020-04-07] MEDS: Patiromer POWDER 8.4 GM PAK PO SCH (08:47)
[2020-04-07] MEDS: Insulin GLARGINE 100 un/ml 10 ml VIAL SUBCUT SCH (08:47)
[2020-04-07] MEDS: Lactated Ringers 1000 ml BAG 1,000 ML IV SCH (09:21)
[2020-04-07] MEDS: Cefepime 2 GM in Dextrose 2 GM/50 ML BAG IV SCH ×2 (09:21→21:05)
[2020-04-07] MEDS: Enoxaparin 40 MG/0.4 ML SYR SUBCUT SCH ×2 (09:28→21:07)
[2020-04-07 11:00] LABS: Activated Partial Thrombo Time 30.8 seconds (26.0-38.0); Fibrinogen 592.6 mg/dL (110.8-404.3); INR 1.2 (0.82-1.09)
[2020-04-07 11:38] LABS: Troponin I 0.06 ng/mL (<0.03)
[2020-04-07 12:31] LABS: INR 1.18 (0.82-1.09)
[2020-04-07 12:33] LABS: BUN/Creatinine Ratio 36.8 (8-20); Calcium 7.8 mg/dL (8.6-10.3); EGFR African American 55.6 (>60); Potassium 4.9 mmol/L (3.5-5.0)
[2020-04-07 12:35] LABS: ABS Lymphocytes 0.6 10^3/ul (1.0-4.8); ABS Monocytes 0.7 10^3/ul (0-0.8); ABS Neutrophils 17.2 10^3/ul (1.5-7.7); Eosinophil % 0.1 %; Hematocrit 38 % (42-52); Hemoglobin 12.7 g/dL (14.0-18.0); Lymphocyte % 3.1 %; Mean Corpuscular HGB Conc 33 g/dL (31-36); Mean Corpuscular Hemoglobin 28 pg (27-31); Mean Corpuscular Volume 85 fL (80-94); Platelet Count 1121 10^3/uL (150-450); Red Blood Count 4.48 10^6 /uL (4.18-5.48); Red Cell Distribution Width 17 % (10-15); Troponin I 0.02 ng/mL (<0.03); White Blood Count 18.6 10^3/uL (3.5-10.8)
[2020-04-08] MEDS: Artificial Tear OPHTH.OINT 3.5 GM BOTH EYES SCH ×5 (00:53→23:29)
[2020-04-08] MEDS: Chlorhexidine MOUTHWASH 0.12% 15 ML UDC TOPICAL SCH ×6 (00:53→21:16)
[2020-04-08] MEDS: Propofol 10 mg/ml 100 ML BTL 100 ML IV SCH ×4 (02:44→20:14)
[2020-04-08] MEDS: Albuterol 2.5mg/3 ml (0.083%) NEB.SOLN INH PRN (02:45)
[2020-04-08 05:23] LABS: Hematocrit 39 % (42-52); Hemoglobin 12.6 g/dL (14.0-18.0); Mean Corpuscular HGB Conc 32 g/dL (31-36); Mean Corpuscular Hemoglobin 28 pg (27-31); Mean Corpuscular Volume 86 fL (80-94); Platelet Count 890 10^3/uL (150-450); Red Blood Count 4.52 10^6 /uL (4.18-5.48); Red Cell Distribution Width 17 % (10-15); White Blood Count 17.4 10^3/uL (3.5-10.8)
[2020-04-08] MEDS: fentaNYL INFUSION 50 MCG/ML 2,500 MCG/50 ML BAG IV SCH (05:33)
[2020-04-08 05:38] LABS: BUN/Creatinine Ratio 40.7 (8-20); EGFR African American 76.2 (>60); Magnesium 2.5 mg/dL (1.9-2.7); Potassium 4.9 mmol/L (3.5-5.0)
[2020-04-08] MEDS: Propofol* 20 ML VIAL - FOR IV LINE PRIMING ONLY SCH ×2 (06:08→15:33)
[2020-04-08] MEDS: Patiromer POWDER 8.4 GM PAK PO SCH (08:13)
[2020-04-08] MEDS: methylPREDNISolone SOD 40 mg/ml 1 ml VIAL IV SCH (08:24)
[2020-04-08] MEDS: Enoxaparin 40 MG/0.4 ML SYR SUBCUT SCH ×2 (08:30→20:15)
[2020-04-08] MEDS: Insulin GLARGINE 100 un/ml 10 ml VIAL SUBCUT SCH (08:35)
[2020-04-08] MEDS: Cefepime 2 GM in Dextrose 2 GM/50 ML BAG IV SCH ×2 (09:25→20:15)
[2020-04-08 10:13] LABS: Phosphorus 4.3 mg/dL (2.5-5.0)
[2020-04-08] MEDS ORDERED: Vancomycin Trough Check NOTE FOLLOW UP ONE (10:30)
[2020-04-08] MEDS: Vancomycin 1,250 MG in NS 0.9% 250 ml 250 ML IVPB SCH ×2 (12:06→14:03)
[2020-04-08] MEDS: Cisatracurium 100 MG in NS 0.9% 250 ml 200 ML IV SCH ×2 (12:24→20:16)
[2020-04-08] MEDS: methylPREDNISolone 125 mg 2 ML VIAL IV SCH ×2 (15:21→23:30)
[2020-04-08] MEDS: Lactated Ringers 1000 ml BAG 1,000 ML IV SCH (16:46)
[2020-04-08] MEDS: Vancomycin 1000 MG in NS 0.9% 250 ML IVPB SCH (20:15)
[2020-04-09] MEDS ORDERED: hydrALAZINE 20 mg/ml 1 ML Vial IV ONE (01:33)
[2020-04-09] MEDS ORDERED: hydrALAZINE 20 mg/ml 1 ML Vial IV IV SLOW PU ONE (01:33)
[2020-04-09] MEDS ORDERED: Midazolam 5 mg/5 ml VIAL 1 mg/ml 5 ml VIAL (5 mg) IV SLOW PU ONE ×2 (02:01→07:27)
[2020-04-09] MEDS ORDERED: Midazolam 5 mg/5 ml VIAL 1 mg/ml 5 ml VIAL (5 mg) ONE (02:01)
[2020-04-09] MEDS: Chlorhexidine MOUTHWASH 0.12% 15 ML UDC TOPICAL SCH ×6 (02:03→20:56)
[2020-04-09] MEDS: Propofol* 20 ML VIAL - FOR IV LINE PRIMING ONLY SCH ×2 (03:08→14:35)
[2020-04-09] MEDS: Propofol 10 mg/ml 100 ML BTL 100 ML IV SCH ×8 (03:12→21:41)
[2020-04-09] MEDS: fentaNYL INFUSION 50 MCG/ML 2,500 MCG/50 ML BAG IV SCH ×2 (03:19→16:15)
[2020-04-09 05:26] LABS: Hematocrit 39 % (42-52); Hemoglobin 12.6 g/dL (14.0-18.0); Mean Corpuscular HGB Conc 33 g/dL (31-36); Mean Corpuscular Hemoglobin 28 pg (27-31); Mean Corpuscular Volume 86 fL (80-94); Mean Platelet Volume 7.1 fL (7.4-10.4); Platelet Count 718 10^3/uL (150-450); Red Blood Count 4.49 10^6 /uL (4.18-5.48); Red Cell Distribution Width 17 % (10-15); White Blood Count 17.6 10^3/uL (3.5-10.8)
[2020-04-09] MEDS: Cisatracurium 100 MG in NS 0.9% 250 ml 200 ML IV SCH ×2 (05:55→16:34)
[2020-04-09] MEDS: Artificial Tear OPHTH.OINT 3.5 GM BOTH EYES SCH ×3 (06:21→16:12)
[2020-04-09 06:38] LABS: EGFR African American 101.5 (>60); EGFR Non-African American 83.9 (>60)
[2020-04-09] MEDS: Lactated Ringers 1000 ml BAG 1,000 ML IV SCH (07:47)
[2020-04-09] MEDS ORDERED: Midazolam 50 MG VIAL IV DRIP 50 ML IV SCH (08:00)
[2020-04-09] MEDS: Enoxaparin 40 MG/0.4 ML SYR SUBCUT SCH ×2 (08:10→20:56)
[2020-04-09] MEDS: methylPREDNISolone 125 mg 2 ML VIAL IV SCH ×3 (08:10→23:41)
[2020-04-09] MEDS: Insulin GLARGINE 100 un/ml 10 ml VIAL SUBCUT SCH (08:11)
[2020-04-09] MEDS: Cefepime 2 GM in Dextrose 2 GM/50 ML BAG IV SCH ×3 (08:30→20:56)
[2020-04-09 08:38] LABS: Magnesium 2.5 mg/dL (1.9-2.7)
[2020-04-09 08:44] LABS: Phosphorus 4.3 mg/dL (2.5-5.0)
[2020-04-09] MEDS ORDERED: Vancomycin Trough Check NOTE FOLLOW UP ONE (09:30)
[2020-04-09] MEDS: Vancomycin 1000 MG in NS 0.9% 250 ML IVPB SCH ×2 (09:46→21:53)
[2020-04-09] MEDS: Pantoprazole VIAL 40 MG VIAL IV SCH ×2 (10:43→20:56)
[2020-04-09] MEDS: Patiromer POWDER 8.4 GM PAK PO SCH (10:46)
[2020-04-09] MEDS ORDERED: Senna TAB 8.6 mg TAB PO PRN (16:09)
[2020-04-09] MEDS: Polyethylene Glycol 3350 17 GM PACKET PO PRN (20:56)
[2020-04-09] MEDS: Norepinephrine 16MCG/ML IVPREMIX 4,000 MCG/250 ML BAG IV SCH (23:19)
[2020-04-10] MEDS: Propofol 10 mg/ml 100 ML BTL 100 ML IV SCH ×8 (00:14→22:32)
[2020-04-10] MEDS: Chlorhexidine MOUTHWASH 0.12% 15 ML UDC TOPICAL SCH ×6 (01:10→21:58)
[2020-04-10] MEDS: Artificial Tear OPHTH.OINT 3.5 GM BOTH EYES SCH ×5 (01:10→23:38)
[2020-04-10] MEDS: Propofol* 20 ML VIAL - FOR IV LINE PRIMING ONLY SCH ×2 (01:57→13:18)
[2020-04-10] MEDS: Cisatracurium 100 MG in NS 0.9% 250 ml 200 ML IV SCH ×3 (01:58→23:30)
[2020-04-10] MEDS: fentaNYL INFUSION 50 MCG/ML 2,500 MCG/50 ML BAG IV SCH (04:55)
[2020-04-10 05:08] LABS: Hematocrit 34 % (42-52); Hemoglobin 11.1 g/dL (14.0-18.0); Mean Corpuscular HGB Conc 33 g/dL (31-36); Mean Corpuscular Hemoglobin 28 pg (27-31); Mean Corpuscular Volume 87 fL (80-94); Mean Platelet Volume 7.4 fL (7.4-10.4); Platelet Count 705 10^3/uL (150-450); Red Blood Count 3.91 10^6 /uL (4.18-5.48); Red Cell Distribution Width 17 % (10-15)
[2020-04-10 05:16] LABS: BUN/Creatinine Ratio 32.4 (8-20); Calcium 7.7 mg/dL (8.6-10.3); EGFR African American 87.2 (>60)
[2020-04-10 05:22] LABS: Potassium 5.2 mmol/L (3.5-5.0)
[2020-04-10] MEDS: Cefepime 2 GM in Dextrose 2 GM/50 ML BAG IV SCH (07:33)
[2020-04-10] MEDS: Pantoprazole VIAL 40 MG VIAL IV SCH ×2 (07:41→21:58)
[2020-04-10] MEDS: methylPREDNISolone 125 mg 2 ML VIAL IV SCH ×2 (07:41→16:35)
[2020-04-10] MEDS: Enoxaparin 40 MG/0.4 ML SYR SUBCUT SCH ×2 (07:42→21:58)
[2020-04-10] MEDS: Insulin GLARGINE 100 un/ml 10 ml VIAL SUBCUT SCH (07:42)
[2020-04-10] MEDS: Patiromer POWDER 8.4 GM PAK PO SCH (07:48)
[2020-04-10] MEDS ORDERED: Vancomycin Trough Check NOTE FOLLOW UP ONE (08:30)
[2020-04-10] MEDS: Vancomycin 1000 MG in NS 0.9% 250 ML IVPB SCH ×2 (11:25→22:31)
[2020-04-10] MEDS ORDERED: Lorazepam PYXIS KEY ONE (15:51)
[2020-04-10] MEDS ORDERED: LORazepam 2 mg VIAL 1 ml ONE (15:52)
[2020-04-10] MEDS ORDERED: Acetylcysteine INH SOL (RT) 200 MG/ML 4 ML VIAL INH ONE (15:53)
[2020-04-10] MEDS ORDERED: Rocuronium 50 mg VIAL 10 mg/ml 5 ml VIAL (50 mg) ONE ×2 (16:15→17:35)
[2020-04-10] MEDS: Albuterol 2.5mg/3 ml (0.083%) NEB.SOLN INH PRN (16:24)
[2020-04-10] MEDS ORDERED: Phenylephrine IV 10 MG/ML 1 ml VIAL ONE (16:56)
[2020-04-10] MEDS ORDERED: Furosemide 40 mg/4 ml IV VIAL ONE (17:23)
[2020-04-10] MEDS ORDERED: Albuterol 2.5mg/3 ml (0.083%) NEB.SOLN INH ONE (17:26)
[2020-04-10] MEDS ORDERED: Phenylephrine IV 50 MG in NS 0.9% 250 ml 245 ML IV SCH (18:00)
[2020-04-10] MEDS ORDERED: Lidocaine 1% VIAL 10 MG/ML VIAL ONE (18:01)
[2020-04-10] MEDS ORDERED: Midazolam 5 mg/5 ml VIAL 1 mg/ml 5 ml VIAL (5 mg) ONE (18:09)
[2020-04-10] MEDS: cefTRIAXone 1 gm/50 mL NS BAG 1 GM/50 ML BAG IVPB SCH (21:07)
[2020-04-11] MEDS: Albuterol 2.5mg/3 ml (0.083%) NEB.SOLN INH PRN (00:51)
[2020-04-11] MEDS: Propofol 10 mg/ml 100 ML BTL 100 ML IV SCH ×9 (00:58→19:57)
[2020-04-11] MEDS: fentaNYL INFUSION 50 MCG/ML 2,500 MCG/50 ML BAG IV SCH ×3 (01:03→20:52)
[2020-04-11] MEDS: methylPREDNISolone 125 mg 2 ML VIAL IV SCH ×2 (01:20→07:49)
[2020-04-11] MEDS: Chlorhexidine MOUTHWASH 0.12% 15 ML UDC TOPICAL SCH ×6 (01:20→22:20)
[2020-04-11] MEDS: Propofol* 20 ML VIAL - FOR IV LINE PRIMING ONLY SCH ×3 (04:31→12:10)
[2020-04-11] MEDS: Cisatracurium 100 MG in NS 0.9% 250 ml 200 ML IV SCH ×2 (04:47→10:16)
[2020-04-11 04:50] LABS: Hematocrit 34 % (42-52); Hemoglobin 11.5 g/dL (14.0-18.0); Mean Corpuscular HGB Conc 33 g/dL (31-36); Mean Corpuscular Hemoglobin 29 pg (27-31); Mean Corpuscular Volume 87 fL (80-94); Mean Platelet Volume 7.2 fL (7.4-10.4); Platelet Count 784 10^3/uL (150-450); Red Blood Count 3.98 10^6 /uL (4.18-5.48); Red Cell Distribution Width 17 % (10-15); White Blood Count 31.6 10^3/uL (3.5-10.8)
[2020-04-11 05:10] LABS: BUN/Creatinine Ratio 26.6 (8-20); Blood Urea Nitrogen 38 mg/dL (6-24); CO2 Carbon Dioxide 24 mmol/L (22-32); Calcium 7.6 mg/dL (8.6-10.3); Chloride 103 mmol/L (101-111); EGFR Non-African American 50.4 (>60); Glucose 279 mg/dL (70-100); Sodium 134 mmol/L (135-145)
[2020-04-11 05:28] LABS: Anion Gap 7 mmol/L (2-11)
[2020-04-11] MEDS: Artificial Tear OPHTH.OINT 3.5 GM BOTH EYES SCH ×3 (05:43→18:05)
[2020-04-11] MEDS: Insulin GLARGINE 100 un/ml 10 ml VIAL SUBCUT SCH (07:47)
[2020-04-11] MEDS: Enoxaparin 40 MG/0.4 ML SYR SUBCUT SCH ×2 (07:48→20:57)
[2020-04-11] MEDS: Pantoprazole VIAL 40 MG VIAL IV SCH ×2 (07:51→20:57)
[2020-04-11] MEDS: Patiromer POWDER 8.4 GM PAK PO SCH (07:54)
[2020-04-11] MEDS: Norepinephrine 16MCG/ML IVPREMIX 4,000 MCG/250 ML BAG IV SCH ×2 (09:37→15:34)
[2020-04-11] MEDS: Polyethylene Glycol 3350 17 GM PACKET PO PRN (12:22)
[2020-04-11] MEDS: methylPREDNISolone SOD 40 mg/ml 1 ml VIAL IV SCH (14:53)
[2020-04-11] MEDS ORDERED: Lorazepam PYXIS KEY ONE (18:00)
[2020-04-11] MEDS ORDERED: LORazepam 2 mg VIAL 1 ml ONE (18:01)
[2020-04-11] MEDS ORDERED: LORazepam 2 mg VIAL 1 ml IM ONE (18:30)
[2020-04-11] MEDS ORDERED: Lorazepam PYXIS KEY PRN ×2 (18:30→19:15)
[2020-04-11] MEDS ORDERED: LORazepam 2 mg VIAL 1 ml IV PUSH ONE (19:15)
[2020-04-11] MEDS: cefTRIAXone 1 gm/50 mL NS BAG 1 GM/50 ML BAG IVPB SCH (19:57)
[2020-04-11] MEDS: CMCS:Methylnaltrexone SQ (NF) 12 MG/0.6 ML VIAL SUBCUT SCH (20:52)
[2020-04-11] MEDS: Lactulose 30 ml UDC PO SCH (20:57)
[2020-04-12] MEDS: Norepinephrine 16MCG/ML IVPREMIX 4,000 MCG/250 ML BAG IV SCH ×3 (00:20→21:18)
[2020-04-12] MEDS: methylPREDNISolone SOD 40 mg/ml 1 ml VIAL IV SCH ×4 (00:20→23:39)
[2020-04-12] MEDS: Artificial Tear OPHTH.OINT 3.5 GM BOTH EYES SCH ×5 (00:21→23:38)
[2020-04-12] MEDS: Chlorhexidine MOUTHWASH 0.12% 15 ML UDC TOPICAL SCH ×6 (02:13→21:20)
[2020-04-12] MEDS ORDERED: Midazolam 5 mg/5 ml VIAL 1 mg/ml 5 ml VIAL (5 mg) IV SLOW PU ONE ×2 (04:03→21:44)
[2020-04-12] MEDS: Propofol* 20 ML VIAL - FOR IV LINE PRIMING ONLY SCH ×2 (04:20→15:18)
[2020-04-12 04:34] LABS: ABS Eosinophils 0.2 10^3/ul (0-0.6); ABS Lymphocytes 0.5 10^3/ul (1.0-4.8); ABS Monocytes 0.6 10^3/ul (0-0.8); ABS Neutrophils 18.5 10^3/ul (1.5-7.7); Eosinophil % 0.8 %; Hematocrit 31 % (42-52); Hemoglobin 10.3 g/dL (14.0-18.0); Lymphocyte % 2.5 %; Mean Corpuscular HGB Conc 33 g/dL (31-36); Mean Corpuscular Hemoglobin 29 pg (27-31); Mean Corpuscular Volume 87 fL (80-94); Mean Platelet Volume 7.3 fL (7.4-10.4); Platelet Count 544 10^3/uL (150-450); Red Blood Count 3.63 10^6 /uL (4.18-5.48); Red Cell Distribution Width 18 % (10-15); White Blood Count 19.7 10^3/uL (3.5-10.8)
[2020-04-12 04:51] LABS: Albumin 2.3 g/dL (3.2-5.2); Albumin/Globulin Ratio 0.7 (1-3); BUN/Creatinine Ratio 30.6 (8-20); EGFR African American 81.8 (>60); EGFR Non-African American 67.6 (>60); Globulin 3.2 g/dL (2-4); Magnesium 2.6 mg/dL (1.9-2.7); Phosphorus 3.5 mg/dL (2.5-5.0); Potassium 4.9 mmol/L (3.5-5.0); Total Bilirubin 0.3 mg/dL (0.2-1.0); Total Protein 5.5 g/dL (6.4-8.9)
[2020-04-12] MEDS: fentaNYL INFUSION 50 MCG/ML 2,500 MCG/50 ML BAG IV SCH ×2 (06:37→18:07)
[2020-04-12] MEDS: Propofol 10 mg/ml 100 ML BTL 100 ML IV SCH ×7 (06:38→23:39)
[2020-04-12] MEDS: Patiromer POWDER 8.4 GM PAK PO SCH (09:16)
[2020-04-12] MEDS: Lactulose 30 ml UDC PO SCH ×3 (09:16→20:07)
[2020-04-12] MEDS: Polyethylene Glycol 3350 17 GM PACKET PO PRN (09:16)
[2020-04-12] MEDS: Pantoprazole VIAL 40 MG VIAL IV SCH ×2 (09:41→20:07)
[2020-04-12] MEDS: Enoxaparin 40 MG/0.4 ML SYR SUBCUT SCH ×2 (09:41→20:07)
[2020-04-12] MEDS: Insulin GLARGINE 100 un/ml 10 ml VIAL SUBCUT SCH (09:51)
[2020-04-12] MEDS ORDERED: CMCS:Methylnaltrexone SQ (NF) 12 MG/0.6 ML VIAL SUBCUT ONE (10:00)
[2020-04-12 12:17] LABS: Influenza A Molecular Negative (Negative); Influenza B Molecular Negative (Negative)
[2020-04-12] MEDS: fentaNYL 100 mcg/2 ml 50 MCG/ML VIAL IV SLOW PU PRN ×2 (12:32→19:40)
[2020-04-12] MEDS ORDERED: LORazepam 2 mg VIAL 1 ml ONE ×2 (12:53→17:07)
[2020-04-12] MEDS ORDERED: Lorazepam PYXIS KEY PRN (17:04)
[2020-04-12] MEDS ORDERED: LORazepam 2 mg VIAL 1 ml IV PUSH PRN (17:04)
[2020-04-12] MEDS: cefTRIAXone 1 gm/50 mL NS BAG 1 GM/50 ML BAG IVPB SCH (19:40)
[2020-04-12] MEDS: LORazepam 2 mg VIAL 1 ml IV PUSH PRN (20:06)
[2020-04-12] MEDS ORDERED: Senna TAB 8.6 mg TAB PO SCH (21:00)
[2020-04-12] MEDS: CMCS:Methylnaltrexone SQ (NF) 12 MG/0.6 ML VIAL SUBCUT SCH (21:22)
[2020-04-13] MEDS: fentaNYL 100 mcg/2 ml 50 MCG/ML VIAL IV SLOW PU PRN (00:35)
[2020-04-13] MEDS ORDERED: Rocuronium 50 mg VIAL 10 mg/ml 5 ml VIAL (50 mg) IV ONE ×2 (01:16→02:14)
[2020-04-13] MEDS: LORazepam 2 mg VIAL 1 ml IV PUSH PRN ×2 (01:17→14:34)
[2020-04-13] MEDS ORDERED: Rocuronium 50 mg VIAL 10 mg/ml 5 ml VIAL (50 mg) ONE (01:17)
[2020-04-13 01:59] LABS: Urine Appearance Cloudy; Urine Bilirubin Negative (Negative); Urine Blood Negative (Negative); Urine Color Yellow; Urine Glucose Negative (Negative); Urine Ketones Negative (Negative); Urine Nitrite Negative (Negative); Urine Protein 1+(30 mg/dL) (Negative); Urine Specific Gravity 1.016 (1.010-1.030); Urine Urobilinogen Negative (Negative)
[2020-04-13] MEDS ORDERED: Midazolam 5 mg/5 ml VIAL 1 mg/ml 5 ml VIAL (5 mg) IV SLOW PU ONE (02:06)
[2020-04-13] MEDS ORDERED: Midazolam 5 mg/5 ml VIAL 1 mg/ml 5 ml VIAL (5 mg) ONE (02:10)
[2020-04-13] MEDS: Chlorhexidine MOUTHWASH 0.12% 15 ML UDC TOPICAL SCH ×3 (02:18→10:41)
[2020-04-13 02:24] LABS: Urine Bacteria Absent (Absent); Urine Granular Casts Present (Absent); Urine Red Blood Cell 3+(>10/hpf) (Absent); Urine White Blood Cell 3+(>20/hpf) (Absent)
[2020-04-13] MEDS: Cisatracurium 100 MG in NS 0.9% 250 ml 200 ML IV SCH ×2 (02:29→09:48)
[2020-04-13] MEDS: fentaNYL INFUSION 50 MCG/ML 2,500 MCG/50 ML BAG IV SCH ×2 (03:42→12:31)
[2020-04-13] MEDS: Norepinephrine 16MCG/ML IVPREMIX 4,000 MCG/250 ML BAG IV SCH ×3 (03:42→12:24)
[2020-04-13 04:26] LABS: Hematocrit 33 % (42-52); Hemoglobin 10.7 g/dL (14.0-18.0); Mean Corpuscular HGB Conc 33 g/dL (31-36); Mean Corpuscular Hemoglobin 29 pg (27-31); Mean Corpuscular Volume 88 fL (80-94); Mean Platelet Volume 7.3 fL (7.4-10.4); Platelet Count 494 10^3/uL (150-450); Red Blood Count 3.72 10^6 /uL (4.18-5.48); Red Cell Distribution Width 18 % (10-15); White Blood Count 28.2 10^3/uL (3.5-10.8)
[2020-04-13 04:44] LABS: Albumin 2.5 g/dL (3.2-5.2); Albumin/Globulin Ratio 0.8 (1-3); BUN/Creatinine Ratio 26.6 (8-20); EGFR African American 83.5 (>60); Globulin 3.2 g/dL (2-4); Magnesium 2.5 mg/dL (1.9-2.7); Phosphorus 4.5 mg/dL (2.5-5.0); Total Bilirubin 0.4 mg/dL (0.2-1.0); Total Protein 5.7 g/dL (6.4-8.9)
[2020-04-13 05:04] LABS: Indirect Bilirubin 0.2 mg/dL (0.3-1.0); Potassium 4.8 mmol/L (3.5-5.0)
[2020-04-13] MEDS: Propofol* 20 ML VIAL - FOR IV LINE PRIMING ONLY SCH (05:26)
[2020-04-13] MEDS: Artificial Tear OPHTH.OINT 3.5 GM BOTH EYES SCH ×2 (05:26→13:00)
[2020-04-13 05:36] LABS: Microcytosis 1+; Polychromasia 1+; Tear Drop Cells 1+
[2020-04-13 05:45] LABS: ABS Basophils 0.1 10^3/ul (0-0.2); ABS Eosinophils 0.3 10^3/ul (0-0.6); ABS Lymphocytes 0.8 10^3/ul (1.0-4.8); ABS Monocytes 0.5 10^3/ul (0-0.8); ABS Neutrophils 26.5 10^3/ul (1.5-7.7); Eosinophil % 1.1 %; Lymphocyte % 2.9 %
[2020-04-13] MEDS: methylPREDNISolone SOD 40 mg/ml 1 ml VIAL IV SCH (07:57)
[2020-04-13] MEDS: Enoxaparin 40 MG/0.4 ML SYR SUBCUT SCH (08:35)
[2020-04-13] MEDS: Pantoprazole VIAL 40 MG VIAL IV SCH (08:35)
[2020-04-13] MEDS: Lactulose 30 ml UDC PO SCH (08:35)
[2020-04-13] MEDS: Patiromer POWDER 8.4 GM PAK PO SCH (08:36)
[2020-04-13] MEDS: Propofol 10 mg/ml 100 ML BTL 100 ML IV SCH ×3 (08:56→13:43)
[2020-04-13] MEDS ORDERED: Insulin GLARGINE 100 un/ml 10 ml VIAL SUBCUT SCH (09:00)
[2020-04-13] MEDS ORDERED: Furosemide 40 mg/4 ml IV VIAL IV ONE ×2 (09:17→09:53)
[2020-04-13] MEDS ORDERED: Acetaminophen IV 1 GM/100ML 100 ML IVPB ONE (09:19)
[2020-04-13] MEDS: Albuterol 2.5mg/3 ml (0.083%) NEB.SOLN INH PRN (09:50)
[2020-04-13] MEDS ORDERED: Glycopyrrolate IV 0.2 MG/ML 20 ML VIAL IV SLOW PU PRN (13:40)
[2020-04-13 16:08] VITALS: BP 115/71
== END 2020-04-13 14:28 | disposition expired | DRG 130 ==
LOC: ED 16:24 → ICU 21:13
PROVIDERS: ADMIT Surgery Surgical Critical Care; ATTEND Internal Medicine